=== PATIENT | male | born 1970 | race Two or more races ===

== ENCOUNTER 2018-04-25 07:45 | Emergency (ER) | payer OTHER ==
[~2018-04-25] VITALS: Ht 180.3 cm; Wt 107.5 kg
[2018-04-25 07:52] VITALS: BP 146/77
[2018-04-25] MEDS ORDERED: NAPROXEN 500 MG TABLET PO STA (08:25)
[2018-04-25] MEDS ORDERED: HYDROcodone/APAP 5/325MG 1 TAB TABLET PO ONE (08:30)
[2018-04-25] MEDS ORDERED: CYCLOBENZAPRINE 10 MG TABLET. PO ONE (08:30)
--- NOTE | 2018-04-25 08:44 | PHYS DOC ---
Past Medical History Past Medical History: No Pertinent History (YASMIN PINEDO APRN) Past Surgical History: No Surgical History (YASMIN PINEDO APRN) Additional Information: 2-05/13 ppd Alcohol Use: Rarely Drug Use: None (YASMIN PINEDO APRN) Adult General Chief Complaint Chief Complaint: BACK PAIN - NO INJURY HPI HPI Patient is a 48 year old male with no significant medical history who presents to the ED today complaining over 10 out of 10 left flank pain worse on movement described as tight and intermittent that has been going on for a week. Patient denies any known injury. Denies any pain radiating to bilateral lower extremities or upper extremities. Denies any loss of bowel bladder function. 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 Patient denies any numbness or tingling to bilateral lower extremities. He states he's been using [id number] remedies with no relief. Patient is guarding his left flank region especially on movement. Denies any hematuria urgency frequency dysuria. (YASMIN PINEDO APRN) Review of Systems Review of Systems Constitutional: Denies fever or chills [] Eyes: Denies change in visual acuity, redness, or eye pain [] HENT: Denies nasal congestion or sore throat [] Respiratory: Denies cough or shortness of breath [] Cardiovascular: No additional information not addressed in HPI [] GI: Denies abdominal pain, nausea, vomiting, bloody stools or diarrhea [] : Denies dysuria or hematuria [] Musculoskeletal: Reports left flank pain. Integument: Denies rash or skin lesions [] Neurologic: Denies headache, focal weakness or sensory changes [] All other systems were reviewed and found to be within normal limits, except as documented in this note. (YASMIN PINEDO APRN) Current Medications Current Medications Current Medications Medications (Trade) Dose Ordered Sig/Chip Start Time Stop Time Status Last Admin Dose Admin Acetaminophen/ Hydrocodone Bitart (Lortab 5/325) 2 tab 1X ONCE 04/25/18 08:30 04/25/18 08:31 DC 04/25/18 08:55 2 TAB Cyclobenzaprine HCl (Flexeril) 10 mg 1X ONCE 04/25/18 08:30 04/25/18 08:31 DC 04/25/18 08:54 10 MG Naproxen (Naprosyn) 500 mg 1X STAT 04/25/18 08:25 04/25/18 08:31 DC 04/25/18 08:55 500 MG (SARAI ROJAS MD) Allergies Allergies Allergies Coded Allergies Type Severity Reaction Last Updated Verified No Known Drug Allergies 04/25/18 No (SARAI ROJAS MD) Physical Exam Physical Exam Constitutional: Well developed, well nourished, no acute distress, non-toxic appearance. [] HENT: Normocephalic, atraumatic, bilateral external ears normal, oropharynx moist, no oral exudates, nose normal. [] Eyes: PERRLA, EOMI, conjunctiva normal, no discharge. [] Neck: Normal range of motion, no tenderness, supple, no stridor. [] Cardiovascular:Heart rate regular rhythm, no murmur [] Lungs & Thorax: Bilateral breath sounds clear to auscultation [] Abdomen: Bowel sounds normal, soft, no tenderness, no masses, no pulsatile masses. [] Skin: Warm, dry, no erythema, no rash. [] Back: Patient is guarding the left flank. Moderate tenderness on palpation of the left flank region diffusely, no midline thoracic or lumbar spine tenderness , mild left CVA tenderness. [] Extremities: No tenderness, no cyanosis, no clubbing, ROM intact, no edema. [] Neurologic: Alert and oriented X 3, normal motor function, normal sensory function, no focal deficits noted. [] Psychologic: Affect normal, judgement normal, mood normal. [] (YASMIN PINEDO APRN) Current Patient Data Vital Signs Vital Signs Date Time Temp Pulse Resp B/P (MAP) Pulse Ox O2 Delivery O2 Flow Rate FiO2 04/25/18 08:55 16 Room Air 04/25/18 07:52 98.6 78 146/77 (100) 98 98.6 (SARAI ROJAS MD) Lab Values Laboratory Tests Test 04/25/18 08:30 Urine Collection Type Unknown Urine Color Yellow Urine Clarity Clear Urine pH 5.0 Urine Specific [place] 1.020 Urine Protein Negative mg/dL (NEG-TRACE) Urine Glucose (UA) Negative mg/dL (NEG) Urine Ketones (Stick) Negative mg/dL (NEG) Urine Blood Negative (NEG) Urine Nitrite Negative (NEG) Urine Bilirubin Negative (NEG) Urine Urobilinogen Dipstick 0.2 mg/dL (0.2 mg/dL) Urine Leukocyte Esterase Negative (NEG) Urine RBC Occ /HPF (0-2) Urine WBC Occ /HPF (0-4) Urine Squamous Epithelial Cells Occ /LPF Urine Bacteria Few /HPF (0-FEW) Urine Mucus Mod /LPF (SARAI ROJAS MD) Lab Values Laboratory Tests Test 04/25/18 08:30 Urine Collection Type Unknown Urine Color Yellow Urine Clarity Clear Urine pH 5.0 Urine Specific [place] 1.020 Urine Protein Negative mg/dL (NEG-TRACE) Urine Glucose (UA) Negative mg/dL (NEG) Urine Ketones (Stick) Negative mg/dL (NEG) Urine Blood Negative (NEG) Urine Nitrite Negative (NEG) Urine Bilirubin Negative (NEG) Urine Urobilinogen Dipstick 0.2 mg/dL (0.2 mg/dL) Urine Leukocyte Esterase Negative (NEG) Urine RBC Occ /HPF (0-2) Urine WBC Occ /HPF (0-4) Urine Squamous Epithelial Cells Occ /LPF Urine Bacteria Few /HPF (0-FEW) Urine Mucus Mod /LPF (YASMIN PINEDO APRN) EKG EKG [] (YASMIN PINEDO APRN) Radiology/Procedures Radiology/Procedures []PROCEDURE: THORACIC SPINE 3V Examination: THORACIC SPINE 3V History: NO KNOWN INJURY, 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 Lateral views of the thoracic spine were also provided. Alignment is normal. Vertebral body heights are adequate. Mild spurring is noted involving the lower thoracic spine. No fracture or bony destruction. Impression: No acute process. Electronically signed by: Curt Perez MD (04/25/2018 8:57 AM) [id number] DICTATED and SIGNED BY: CURT PEREZ MD DATE: 04/25/18 0856 (YASMIN PINEDO APRN) Course & Med Decision Making Course & Med Decision Making Pertinent Labs and Imaging studies reviewed. 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 Urine analysis is negative for blood, negative for infection. Thoracic spine x-rays interpreted by radiologist are negative for any acute findings. Patient's pain is musculoskeletal. Will be discharged with Medrol Dosepak, diclofenac, cyclobenzaprine. Follow-up with PCP in 1-2 weeks. (YASMIN PINEDO APRN) Course & Med Decision Making Staff Physician Addendum: I was working in the ER during the course of this patient's visit. I was available for consultation as needed, but I was not directly involved in the care of this patient. (SARAI ROJAS MD) Dragon Disclaimer Dragon Disclaimer This electronic medical record was generated, in whole or in part, using a voice recognition dictation system. (YASMIN PINEDO APRN) Departure Departure Impression: Primary Impression: Strain of muscle at thorax level Disposition: 01 HOME, SELF-CARE Condition: STABLE Patient Instructions: Thoracic Strain, [id number] Additional Instructions: You were evaluated in the emergency room for back pain. We put you on medications, take them as prescribed. Try to ice or apply heat to the affected area. Follow-up with your doctor in 1-2 weeks. Scripts Cyclobenzaprine Hcl (CYCLOBENZAPRINE HCL) 10 Mg Tablet 1 TAB PO TID, #30 TAB Prov: YASMIN PINEDO APRN 04/25/18 Methylprednisolone (MEDROL) 4 Mg Tab.ds.pk 1 PKG PO UD, #1 PKG Prov: YASMIN PINEDO APRN 04/25/18 Diclofenac Sodium (DICLOFENAC SODIUM) 50 Mg Tablet.dr 1 TAB PO BID, #30 TAB 0 Refills Prov: YASMIN PINEDO APRN 04/25/18 YASMIN PINEDO APRN Apr 25, 2018 08:44 SARAI ROJAS MD Apr 25, 2018 11:53
--- NOTE | 2018-04-25 08:59 | RAD ---
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 Lateral views of the thoracic spine were also provided. Alignment is normal. Vertebral body heights are adequate. Mild spurring is noted involving the lower thoracic spine. No fracture or bony destruction. Impression: No acute process. Electronically signed by: Curt Velazquez MD (04/25/2018 8:57 AM) [id number]
[2018-04-25 09:02] LABS: BILIRUBIN,URINE NEGATIVE (NEG); CLARITY,URINE CLEAR; COLOR,URINE YELLOW; NITRITE,URINE NEGATIVE (NEG); PROTEIN,URINE NEGATIVE (NEG-TRACE); UROBILINOGEN,URINE 0.2 mg/dL (0.2 mg/dL)
[2018-04-25 09:21] LABS: BACTERIA,URINE FEW /HPF (0-FEW); RBC,URINE OCC /HPF (0-2); SQUAMOUS EPITHELIAL CELL,UR OCC /LPF; WBC,URINE OCC /HPF (0-4)
[2018-04-25] MEDS ORDERED: DICL50TA4 PO (09:35)
[2018-04-25] MEDS ORDERED: METH4TAB2 PO (09:35)
[2018-04-25] MEDS ORDERED: CYCL10TA2 PO (09:35)
== END 2018-04-25 09:50 | disposition home or self-care (01) ==
LOC: ER 07:45
DX: S29.012A Strain of muscle and tendon of back wall of thorax, initial encounter (principal); R10.9 Unspecified abdominal pain; F17.200 Nicotine dependence, unspecified, uncomplicated; X58.XXXA Exposure to other specified factors, initial encounter; Y93.89 Activity, other specified; Y92.89 Other specified places as the place of occurrence of the external cause; Y99.8 Other external cause status
CPT/HCPCS: 72072; 81001; 99284-25